=== PATIENT | female | born 1955 | race Hispanic/Latino ===

== ENCOUNTER 2018-06-24 14:18 | Outpatient (CLI) | payer OTHER ==
--- NOTE | 2018-06-24 14:48 | ULT ---
THYROID ULTRASOUND INDICATION: Right thyroid mass TECHNIQUE: Grayscale and color Doppler images were obtained of the thyroid gland. COMPARISON: None FINDINGS: Right thyroid lobe: The right thyroid lobe measures 4.4 x 2.1 x 1.5 cm. There is a mixed solid and cy stic nodule involving the inferior pole of the right thyroid lobe. The nodules measure 7 x 6 x 5 mm. The nodule is well-circumscribed. The nodule is wider than it is tall. No associated calcificatio ns are present. Thyroid isthmus: The thyroid isthmus measures 0.34 cm. Left thyroid lobe: The left thyroid lobe measures 4.1 x 1.3 x 1.6 cm . IMPRESSION: 1. TIRADS category 2 lesion in the right thyroid lobe. No further sonographic follow-up is recommendnahomi dAyah
== END 2018-06-24 14:19 | disposition home or self-care (01) ==
LOC: BICULT 14:18
PROVIDERS: ATTEND Otolaryngology Plastic Surgery within the Head & Neck
DX: D49.7 Neoplasm of unspecified behavior of endocrine glands and other parts of nervous system (principal); E07.89 Other specified disorders of thyroid
CPT/HCPCS: 76536